=== PATIENT | male | born 1975 | race Caucasian/White ===

== ENCOUNTER 2017-11-25 15:28 | Emergency (ER) | payer BC ==
[~2017-11-25] VITALS: Ht 5703.2 cm; Wt 77.7 kg
[2017-11-25] MEDS ORDERED: HYDROcodone/acetaminophen 10/325mg tab PO ONE (16:40)
[2017-11-25] MEDS ORDERED: TETanus/Pertussis (Acell)/Diphther VAC/PF (Tdap-Adult) 0.5ml syringe IM ONE (16:40)
[2017-11-25] MEDS ORDERED: ACET1TAB12 PO (16:41)
[2017-11-25 17:11] VITALS: BP 12/71
== END 2017-11-25 17:11 | disposition home or self-care (01) ==
LOC: ER 15:31
DX: S60.222A Contusion of left hand, initial encounter (principal); S60.512A Abrasion of left hand, initial encounter; F17.200 Nicotine dependence, unspecified, uncomplicated; Z88.5 Allergy status to narcotic agent; V86.59XA Driver of other special all-terrain or other off-road motor vehicle injured in nontraffic accident, initial encounter; Y93.89 Activity, other specified; Y92.488 Other paved roadways as the place of occurrence of the external cause; Y99.8 Other external cause status
CPT/HCPCS: 73130; 90471; 90715; 99284; A6449